=== PATIENT | female | born 1995 | race Caucasian/White ===

== ENCOUNTER 2021-04-28 09:54 | Day surgery (SDCO) | payer OTHER ==
[~2021-04-28] VITALS: Ht 157.5 cm; Wt 89.4 kg
[2021-04-28 10:58] LABS: HCG (URINE) SCREEN NEGATIVE (NEGATIVE)
[2021-04-28 11:15] LABS: HCT 42.8 % (37.0-47.0); HGB 14.7 g/dl (12.5-16.0); MCH 30.8 pg (25.0-31.0); MCHC 34.3 g/dL (32.0-36.0); MCV 89.5 fL (78.0-100.0); MPV 10.7 fL (6.0-9.5); RBC 4.78 M/uL (4.20-5.40); RDW 11.9 % (11.5-14.0); WBC 6.6 K/uL (4.0-10.5)
[2021-04-29] MEDS ORDERED: PERCOCET 5-3251 EACH PO (08:30)
[2021-04-29] MEDS ORDERED: COLACE100 MG PO (08:30)
[2021-04-29] MEDS ORDERED: MOTRIN600 MG PO (08:30)
== END 2021-04-29 09:30 | disposition home or self-care (01) ==
LOC: FAS 09:54 → FOB 16:39 → FAS 16:40 → FMS 16:41 → FOB 16:41 → FMS 04-29 01:47
PROVIDERS: ADMIT Obstetrics & Gynecology
DX: N72 Inflammatory disease of cervix uteri (principal); N80.0 Endometriosis of uterus; N73.6 Female pelvic peritoneal adhesions (postinfective); Z98.51 Tubal ligation status
CPT/HCPCS: 36415; 84703; 86850; 86900; 86901; 93005; G0378; J0690; J1170; J1885; J2250; J2405; J2704; J2710; J3010; J7120